=== PATIENT | male | born 1990 | race Two or more races ===

== ENCOUNTER 2020-10-03 11:07 | Inpatient (IN) | payer MEDICAID ==
[~2020-10-03] VITALS: Ht 182.9 cm; Wt 66.2 kg
[2020-10-03] MEDS ORDERED: SODIUM CHLORIDE FLUSH 10ML SYR IVF ONE (11:30)
[2020-10-03] MEDS ORDERED: SODIUM CHLORIDE 0.9% 1,000ML IV ONE (11:30)
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
--- NOTE | 2020-10-03 11:40 | NUR ---
lab at bedside for full set of labs inclusing blood cultures x2
[2020-10-03 12:05] LABS: MEAN CORPUSCULAR HEMOGLOBIN 28.8 pg (27.5-34.5); MEAN CORPUSCULAR HGB CONC 33.2 g/dL (33.2-36.2); PLATELET COUNT 134 x10^3/uL (130-400); RED BLOOD COUNT 4.49 x10^6/uL (4.38-5.82); RED CELL DISTRIBUTION WIDTH 13.4 % (9.4-14.8)
[2020-10-03 12:17] LABS: ALANINE AMINOTRANSFERASE 30 U/L (12-78); ALBUMIN 2.2 g/dL (3.4-5.0); ANION GAP 7 mmol/L (5-15); CALCIUM 8.4 mg/dL (8.5-10.1); CHLORIDE 86 mmol/L (98-107); CREATININE 0.86 mg/dL (0.7-1.3)
[2020-10-03 12:23] LABS: ALKALINE PHOSPHATASE 91 U/L (45-117); BILIRUBIN,TOTAL 2.4 mg/dL (0.2-1.0); TOTAL PROTEIN 6.6 g/dL (6.4-8.2)
[2020-10-03 12:25] LABS: C-REACTIVE PROTEIN, QUANT > 19.00 mg/dL (0.02-0.49)
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
[2020-10-03] MEDS ORDERED: ACETAMINOPHEN 500 MG TABLET ONE (12:42)
[2020-10-03 12:47] LABS: LYMPH#(MANUAL) 0.21 x10^3/uL (1-3.4); LYMPHS% (MANUAL) 1 % (22-44); MONOS% (MANUAL) 7 % (2-9); SEG#(MANUAL) 19.69 x10^3/uL (1.8-6.8); SEGS% (MANUAL) 92 % (42-75)
[2020-10-03 12:48] LABS: <PLATELET ESTIMATE> ADEQUATE; <RBC MORPHOLOGY> NORMAL; LARGE PLATELETS 1+; PMNS WITH VACUOLES 1+
--- NOTE | 2020-10-03 12:49 | NUR ---
abx 1/2, tylenol administered per emar patient then to mri
[2020-10-03] MEDS ORDERED: PIPERACILLIN/TAZO 3.375 GM in DEXTROSE 5% 50 ML IVPB ONE (13:00)
[2020-10-03] MEDS ORDERED: ACETAMINOPHEN 500 MG TABLET PO ONE (13:00)
[2020-10-03] MEDS ORDERED: HYDROmorphone 1 MG/ML, 1ML INJ ONE (13:04)
--- NOTE | 2020-10-03 13:23 | NUR ---
MEDICAL OFFICE COORDINATOR RE-ASSESSED PATIENT IN MRI. REMAIN STABLE. ABX 1/2 COMPLETE, ABX 2/2 STARTED PER EMAR. 1MG IV DIALUDID ADMINISTERED AND UA COLLECTED AND SENT TO LAB
[2020-10-03] MEDS ORDERED: HYDROmorphone 2 MG/ML, 1ML IVPush PRN (13:30)
[2020-10-03] MEDS ORDERED: GADOTERATE 10 MMOL/20ML SYR ONE (13:51)
[2020-10-03] MEDS ORDERED: VANCOMYCIN 2,200 MG in SODIUM CHLORIDE 0.9% 500 ML IV ONE (14:00)
[2020-10-03] MEDS ORDERED: VANCOMYCIN PER PHARMACY MC ONE (14:00)
--- NOTE | 2020-10-03 14:02 | NUR ---
REPORT FROM [facility]. PT IN MRI
--- NOTE | 2020-10-03 14:15 | NUR ---
report to slick pizarro ()patient still in MRI
[2020-10-03 14:29] LABS: MICROSCOPIC INDICATED
[2020-10-03] MEDS ORDERED: ENALAPRILAT 1.25 MG/ML, 2ML IVPush PRN (14:30)
[2020-10-03] MEDS ORDERED: ONDANSETRON 2MG/ML, 2ML IVPush PRN (14:30)
--- NOTE | 2020-10-03 15:19 | NUR ---
PT BACK FROM MRI. PT READY FOR TRANSFER
[2020-10-03 16:10] VITALS: BP 118/74
[2020-10-03 16:31] LABS: MEAN CORPUSCULAR HGB CONC 33.2 g/dL (33.2-36.2); MEAN PLATELET VOLUME 11.6 fL (7.4-10.4); PLATELET COUNT 113 x10^3/uL (130-400); RED BLOOD COUNT 3.97 x10^6/uL (4.38-5.82)
[2020-10-03] MEDS: ENOXAPARIN 40 MG/0.4 ML SQ SCH (16:43)
[2020-10-03] MEDS: LACTATED RINGERS 1,000 ML IV SCH (16:43)
[2020-10-03 17:01] LABS: <PLATELET ESTIMATE> DECREASED; <PLT MORPHOLOGY> NORMAL PLT MORPH; BAND#(MANUAL) 0.19 x10^3/uL; BANDS%(MANUAL) 1 % (0-7); LYMPH#(MANUAL) 0.76 x10^3/uL (1-3.4); LYMPHS% (MANUAL) 4 % (22-44); MONOS#(MANUAL) 0.38 x10^3/uL (0.3-2.7); MONOS% (MANUAL) 2 % (2-9); SEG#(MANUAL) 17.67 x10^3/uL (1.8-6.8); SEGS% (MANUAL) 93 % (42-75)
[2020-10-03 17:02] LABS: <RBC MORPHOLOGY> NORMAL
[2020-10-03 19:12] VITALS: BP 111/70
[2020-10-03] MEDS: HYDROcodone/APAP 5/325 TABLET PO PRN (21:23)
[2020-10-03] MEDS: MELATONIN 5 MG TABLET PO PRN (21:23)
[2020-10-04] VITALS: BP 109/67
[2020-10-04] MEDS ORDERED: PHARMACOKINETIC CONSULTATION MC ONE (00:30)
[2020-10-04] MEDS ORDERED: PHARMACOKINETIC MONITORING MC PRN (00:30)
[2020-10-04] MEDS ORDERED: VANCOMYCIN PER PHARMACY MC PRN (00:30)
[2020-10-04] MEDS: LACTATED RINGERS 1,000 ML IV SCH ×3 (00:39→19:50)
[2020-10-04] MEDS: VANCOMYCIN 1,400 MG in SODIUM CHLORIDE 0.9% 250 ML IV SCH ×3 (00:46→19:50)
[2020-10-04 06:14] LABS: CHLORIDE 93 mmol/L (98-107)
[2020-10-04 06:21] LABS: ALANINE AMINOTRANSFERASE 44 U/L (12-78); ALBUMIN 1.6 g/dL (3.4-5.0); ALKALINE PHOSPHATASE 104 U/L (45-117); ANION GAP 4 mmol/L (5-15); CALCIUM 7.5 mg/dL (8.5-10.1); CREATININE 0.56 mg/dL (0.7-1.3); TOTAL PROTEIN 5.4 g/dL (6.4-8.2)
[2020-10-04 06:41] VITALS: BP 132/72
[2020-10-04] MEDS: HYDROcodone/APAP 5/325 TABLET PO PRN ×3 (06:44→21:13)
[2020-10-04 14:22] VITALS: BP 131/84
[2020-10-04] MEDS: ENOXAPARIN 40 MG/0.4 ML SQ SCH (16:33)
[2020-10-04 19:59] VITALS: BP 130/74
[2020-10-05 00:09] VITALS: BP 119/72
[2020-10-05] MEDS: MELATONIN 5 MG TABLET PO PRN (00:10)
[2020-10-05] MEDS: LACTATED RINGERS 1,000 ML IV SCH ×3 (03:52→23:06)
[2020-10-05] MEDS: VANCOMYCIN 1,400 MG in SODIUM CHLORIDE 0.9% 250 ML IV SCH ×2 (03:53→12:48)
[2020-10-05 07:34] VITALS: BP 121/73
[2020-10-05 12:12] VITALS: BP 128/76
[2020-10-05] MEDS: HYDROcodone/APAP 5/325 TABLET PO PRN ×2 (15:35→21:10)
[2020-10-05] MEDS: ENOXAPARIN 40 MG/0.4 ML SQ SCH (18:07)
[2020-10-05 18:50] VITALS: BP 133/82
[2020-10-05] MEDS ORDERED: VANCOMYCIN 1,500 MG in SODIUM CHLORIDE 0.9% 250 ML IV SCH (21:00)
[2020-10-05 21:07] VITALS: BP 144/88
[2020-10-05 22:06] LABS: HCT (SEDRATE) 33.6 % (39.2-51.8)
[2020-10-05] MEDS: CEFTRIAXONE 2 GM in DEXTROSE 5% 50 ML IVPB SCH (23:36)
[2020-10-06 01:33] VITALS: BP 125/80
[2020-10-06 05:36] LABS: CHLORIDE 101 mmol/L (98-107)
[2020-10-06 05:44] LABS: ALANINE AMINOTRANSFERASE 71 U/L (12-78); ALBUMIN 1.4 g/dL (3.4-5.0); ALKALINE PHOSPHATASE 145 U/L (45-117); BILIRUBIN,TOTAL 1.1 mg/dL (0.2-1.0); CALCIUM 7.7 mg/dL (8.5-10.1); CREATININE 0.43 mg/dL (0.7-1.3); TOTAL PROTEIN 5.7 g/dL (6.4-8.2)
[2020-10-06 06:19] LABS: ANION GAP 4 mmol/L (5-15)
[2020-10-06 06:40] LABS: BASOPHILS % (AUTO) 1 % (0-1); EOSINOPHILS % (AUTO) 0 % (1-7); LYMPHOCYTES % (AUTO) 9 % (22-44); MEAN CORPUSCULAR HEMOGLOBIN 29.1 pg (27.5-34.5); MEAN CORPUSCULAR HGB CONC 33.3 g/dL (33.2-36.2); MEAN PLATELET VOLUME 9.3 fL (7.4-10.4); MONOCYTES % (AUTO) 8 % (2-9); NEUTROPHILS % (AUTO) 82 % (42-75); PLATELET COUNT 250 x10^3/uL (130-400); RED BLOOD COUNT 3.75 x10^6/uL (4.38-5.82); RED CELL DISTRIBUTION WIDTH 13.9 % (9.4-14.8)
[2020-10-06 06:45] VITALS: BP 150/77
[2020-10-06] MEDS: HYDROcodone/APAP 5/325 TABLET PO PRN ×3 (06:46→23:19)
[2020-10-06] MEDS ORDERED: POTASSIUM CHLORIDE 20 MEQ TAB.ER.PRT PO ONE (07:00)
[2020-10-06 08:46] VITALS: BP 141/90
[2020-10-06] MEDS: LACTATED RINGERS 1,000 ML IV SCH ×2 (09:22→16:58)
[2020-10-06 14:49] VITALS: BP 138/88
[2020-10-06] MEDS: ENOXAPARIN 40 MG/0.4 ML SQ SCH (17:00)
[2020-10-06 19:18] VITALS: BP 128/73
[2020-10-06] MEDS: ACETAMINOPHEN 325 MG TABLET PO PRN (21:07)
[2020-10-06] MEDS: MELATONIN 5 MG TABLET PO PRN (21:08)
[2020-10-06 23:18] VITALS: BP 130/75
[2020-10-06] MEDS: CEFTRIAXONE 2 GM in DEXTROSE 5% 50 ML IVPB SCH (23:19)
[2020-10-07 01:15] VITALS: BP 129/76
[2020-10-07] MEDS: LACTATED RINGERS 1,000 ML IV SCH (04:18)
[2020-10-07 05:24] LABS: BASOPHILS % (AUTO) 0 % (0-1); EOSINOPHILS % (AUTO) 1 % (1-7); LYMPHOCYTES % (AUTO) 14 % (22-44); MEAN CORPUSCULAR HEMOGLOBIN 29.3 pg (27.5-34.5); MEAN CORPUSCULAR HGB CONC 33.1 g/dL (33.2-36.2); MEAN PLATELET VOLUME 9.4 fL (7.4-10.4); MONOCYTES % (AUTO) 9 % (2-9); NEUTROPHILS % (AUTO) 76 % (42-75); PLATELET COUNT 313 x10^3/uL (130-400); RED BLOOD COUNT 3.81 x10^6/uL (4.38-5.82); RED CELL DISTRIBUTION WIDTH 13.9 % (9.4-14.8)
[2020-10-07 05:39] LABS: ALANINE AMINOTRANSFERASE 72 U/L (12-78); ALBUMIN 1.4 g/dL (3.4-5.0); ANION GAP 2 mmol/L (5-15); CALCIUM 7.9 mg/dL (8.5-10.1); CHLORIDE 104 mmol/L (98-107)
[2020-10-07 05:42] LABS: ALKALINE PHOSPHATASE 130 U/L (45-117); BILIRUBIN,TOTAL 0.9 mg/dL (0.2-1.0); CREATININE 0.43 mg/dL (0.7-1.3); TOTAL PROTEIN 6.1 g/dL (6.4-8.2)
[2020-10-07 06:21] VITALS: BP 134/85
[2020-10-07] MEDS: HYDROcodone/APAP 5/325 TABLET PO PRN (06:22)
[2020-10-07] MEDS: POLYETHYLENE GLYCOL 17 GM PACKET PO PRN (06:22)
[2020-10-07 09:28] VITALS: BP 120/82
[2020-10-07] MEDS: OXYcodone/APAP 10/325MG TABLET PO PRN ×3 (09:41→23:09)
[2020-10-07] MEDS: CEFAZOLIN 2,000 MG in SODIUM CHLORIDE 0.9% 50 ML IV SCH ×2 (13:06→21:52)
[2020-10-07] MEDS: GABAPENTIN 300 MG CAPSULE PO SCH ×2 (15:22→21:52)
[2020-10-07 15:24] VITALS: BP 146/88
[2020-10-07] MEDS: ENOXAPARIN 40 MG/0.4 ML SQ SCH (16:11)
[2020-10-07 19:37] VITALS: BP 142/76
[2020-10-07] MEDS: ACETAMINOPHEN 325 MG TABLET PO PRN (21:52)
[2020-10-07] MEDS: MELATONIN 5 MG TABLET PO PRN (21:52)
[2020-10-07 23:08] VITALS: BP 137/79
[2020-10-08 01:27] VITALS: BP 131/81
[2020-10-08 05:14] VITALS: BP 134/83
[2020-10-08] MEDS: OXYcodone/APAP 10/325MG TABLET PO PRN (05:15)
[2020-10-08] MEDS: ACETAMINOPHEN 325 MG TABLET PO PRN (05:15)
[2020-10-08] MEDS: POLYETHYLENE GLYCOL 17 GM PACKET PO PRN (05:16)
[2020-10-08] MEDS: CEFAZOLIN 2,000 MG in SODIUM CHLORIDE 0.9% 50 ML IV SCH (06:07)
[2020-10-08] MEDS: GABAPENTIN 300 MG CAPSULE PO SCH (08:00)
[2020-10-08 09:59] VITALS: BP 144/87
[2020-10-08] MEDS ORDERED: KETOROLAC 30 MG/1 ML IVPush PRN (10:00)
[2020-10-08] MEDS: ACETAMINOPHEN 325 MG TABLET PO SCH ×3 (10:06→22:51)
[2020-10-08] MEDS: OXYcodone IR 5MG TABLET PO PRN ×3 (10:06→22:51)
[2020-10-08] MEDS: DAPTOMYCIN 500 MG in SODIUM CHLORIDE 0.9% 100 ML IV SCH (11:57)
[2020-10-08] MEDS: KETOROLAC 30 MG/1 ML IVPush SCH ×2 (13:22→20:10)
[2020-10-08 15:47] VITALS: BP 130/77
[2020-10-08] MEDS: ENOXAPARIN 40 MG/0.4 ML SQ SCH (16:24)
[2020-10-08 19:16] VITALS: BP 136/82
[2020-10-08 22:49] VITALS: BP 230/81
[2020-10-08] MEDS: MELATONIN 5 MG TABLET PO PRN (22:50)
[2020-10-09 00:46] VITALS: BP 131/76
[2020-10-09] MEDS: KETOROLAC 30 MG/1 ML IVPush SCH ×4 (01:59→23:33)
[2020-10-09] MEDS: ACETAMINOPHEN 325 MG TABLET PO SCH ×4 (04:00→20:41)
[2020-10-09 06:28] VITALS: BP 147/80
[2020-10-09] MEDS: OXYcodone IR 5MG TABLET PO PRN ×3 (07:53→20:42)
[2020-10-09] MEDS: DAPTOMYCIN 500 MG in SODIUM CHLORIDE 0.9% 100 ML IV SCH (12:42)
[2020-10-09 14:33] VITALS: BP 125/78
[2020-10-09] MEDS: ENOXAPARIN 40 MG/0.4 ML SQ SCH (16:49)
[2020-10-09] MEDS: POLYETHYLENE GLYCOL 17 GM PACKET PO PRN (16:57)
[2020-10-09 20:03] VITALS: BP 127/83
[2020-10-09 20:40] VITALS: BP 134/80
[2020-10-09] MEDS: MELATONIN 5 MG TABLET PO PRN (20:41)
[2020-10-10 00:13] VITALS: BP 105/66
[2020-10-10] MEDS: ACETAMINOPHEN 325 MG TABLET PO SCH ×4 (02:00→20:04)
[2020-10-10] MEDS: KETOROLAC 30 MG/1 ML IVPush SCH ×4 (05:00→23:27)
[2020-10-10] MEDS: OXYcodone IR 5MG TABLET PO PRN ×3 (05:30→18:12)
[2020-10-10 06:57] VITALS: BP 127/77
[2020-10-10] MEDS: DAPTOMYCIN 500 MG in SODIUM CHLORIDE 0.9% 100 ML IV SCH (11:19)
[2020-10-10 12:30] VITALS: BP 126/72
[2020-10-10] MEDS: ENOXAPARIN 40 MG/0.4 ML SQ SCH (18:11)
[2020-10-10 19:34] VITALS: BP 131/77
[2020-10-11] MEDS: OXYcodone IR 5MG TABLET PO PRN ×5 (00:24→22:08)
[2020-10-11 00:34] VITALS: BP 132/77
[2020-10-11] MEDS: ACETAMINOPHEN 325 MG TABLET PO SCH ×4 (04:17→22:08)
[2020-10-11] MEDS: KETOROLAC 30 MG/1 ML IVPush SCH ×4 (05:43→23:57)
[2020-10-11 05:46] LABS: ALBUMIN 1.5 g/dL (3.4-5.0); ANION GAP 6 mmol/L (5-15); CALCIUM 8.3 mg/dL (8.5-10.1); CHLORIDE 97 mmol/L (98-107)
[2020-10-11 05:51] LABS: ALANINE AMINOTRANSFERASE 219 U/L (12-78); ALKALINE PHOSPHATASE 284 U/L (45-117); CREATININE 0.52 mg/dL (0.7-1.3); TOTAL PROTEIN 7.8 g/dL (6.4-8.2)
[2020-10-11 06:33] LABS: BASOPHILS % (AUTO) 1 % (0-1); EOSINOPHILS % (AUTO) 0 % (1-7); LYMPHOCYTES % (AUTO) 10 % (22-44); MEAN CORPUSCULAR HEMOGLOBIN 29.7 pg (27.5-34.5); MEAN CORPUSCULAR HGB CONC 33.4 g/dL (33.2-36.2); MEAN PLATELET VOLUME 7.9 fL (7.4-10.4); MONOCYTES % (AUTO) 6 % (2-9); NEUTROPHILS % (AUTO) 83 % (42-75); PLATELET COUNT 673 x10^3/uL (130-400); RED BLOOD COUNT 3.41 x10^6/uL (4.38-5.82); RED CELL DISTRIBUTION WIDTH 13.4 % (9.4-14.8)
[2020-10-11 07:10] VITALS: BP 142/87
[2020-10-11] MEDS: DAPTOMYCIN 500 MG in SODIUM CHLORIDE 0.9% 100 ML IV SCH (11:45)
[2020-10-11 12:55] VITALS: BP 123/76
[2020-10-11] MEDS: ENOXAPARIN 40 MG/0.4 ML SQ SCH (17:33)
[2020-10-11 20:19] VITALS: BP 128/79
[2020-10-11] MEDS: SODIUM CHLORIDE 0.9% 1,000 ML IV SCH (20:23)
[2020-10-12 01:18] VITALS: BP 131/73
[2020-10-12] MEDS: OXYcodone IR 5MG TABLET PO PRN ×4 (03:22→20:02)
[2020-10-12] MEDS: ACETAMINOPHEN 325 MG TABLET PO SCH ×4 (04:05→21:52)
[2020-10-12] MEDS: KETOROLAC 30 MG/1 ML IVPush SCH ×4 (06:20→23:44)
[2020-10-12 06:38] VITALS: BP 125/69
[2020-10-12] MEDS: SODIUM CHLORIDE 0.9% 1,000 ML IV SCH (07:38)
[2020-10-12 09:58] LABS: ALANINE AMINOTRANSFERASE 206 U/L (12-78); ALBUMIN 1.5 g/dL (3.4-5.0); ANION GAP 4 mmol/L (5-15); CALCIUM 8.5 mg/dL (8.5-10.1); CHLORIDE 102 mmol/L (98-107); CREATININE 0.44 mg/dL (0.7-1.3)
[2020-10-12 10:00] LABS: ALKALINE PHOSPHATASE 271 U/L (45-117); BILIRUBIN,TOTAL 0.6 mg/dL (0.2-1.0); CREATINE KINASE, TOTAL 14 U/L (39-308); TOTAL PROTEIN 7.7 g/dL (6.4-8.2)
[2020-10-12] MEDS: BACLOFEN 10 MG TABLET PO SCH ×2 (10:05→20:02)
[2020-10-12] MEDS: DAPTOMYCIN 500 MG in SODIUM CHLORIDE 0.9% 100 ML IV SCH (11:32)
[2020-10-12 13:35] VITALS: BP 137/78
[2020-10-12] MEDS: ENOXAPARIN 40 MG/0.4 ML SQ SCH (16:35)
[2020-10-12 19:56] VITALS: BP 145/78
[2020-10-12] MEDS: MELATONIN 5 MG TABLET PO PRN (20:02)
[2020-10-13] VITALS: BP 120/74
[2020-10-13] MEDS: SODIUM CHLORIDE 0.9% 1,000 ML IV SCH (00:05)
[2020-10-13] MEDS: ACETAMINOPHEN 325 MG TABLET PO SCH ×4 (03:59→21:21)
[2020-10-13] MEDS: KETOROLAC 30 MG/1 ML IVPush SCH (05:34)
[2020-10-13 06:39] VITALS: BP 143/81
[2020-10-13] MEDS: BACLOFEN 10 MG TABLET PO SCH ×2 (09:17→21:21)
[2020-10-13] MEDS: OXYcodone IR 5MG TABLET PO PRN ×3 (09:17→21:21)
[2020-10-13] MEDS: DAPTOMYCIN 500 MG in SODIUM CHLORIDE 0.9% 100 ML IV SCH (12:00)
[2020-10-13 12:59] VITALS: BP 135/75
[2020-10-13] MEDS: ENOXAPARIN 40 MG/0.4 ML SQ SCH (18:05)
[2020-10-13 19:52] VITALS: BP 120/72
[2020-10-14 01:09] VITALS: BP 151/79
[2020-10-14] MEDS: OXYcodone IR 5MG TABLET PO PRN ×4 (03:45→22:02)
[2020-10-14] MEDS: ACETAMINOPHEN 325 MG TABLET PO SCH ×4 (03:45→22:01)
[2020-10-14 06:43] LABS: BASOPHILS % (AUTO) 1 % (0-1); EOSINOPHILS % (AUTO) 0 % (1-7); LYMPHOCYTES % (AUTO) 15 % (22-44); MEAN CORPUSCULAR HEMOGLOBIN 29.6 pg (27.5-34.5); MEAN CORPUSCULAR HGB CONC 33.8 g/dL (33.2-36.2); MEAN PLATELET VOLUME 7.4 fL (7.4-10.4); MONOCYTES % (AUTO) 8 % (2-9); NEUTROPHILS % (AUTO) 76 % (42-75); PLATELET COUNT 923 x10^3/uL (130-400); RED BLOOD COUNT 3.16 x10^6/uL (4.38-5.82); RED CELL DISTRIBUTION WIDTH 13.3 % (9.4-14.8)
[2020-10-14 06:51] LABS: ALBUMIN 1.6 g/dL (3.4-5.0); ANION GAP 2 mmol/L (5-15); CALCIUM 8.5 mg/dL (8.5-10.1); CHLORIDE 99 mmol/L (98-107)
[2020-10-14 06:53] VITALS: BP 132/83
[2020-10-14 06:56] LABS: ALANINE AMINOTRANSFERASE 194 U/L (12-78); ALKALINE PHOSPHATASE 299 U/L (45-117); BILIRUBIN,TOTAL 0.6 mg/dL (0.2-1.0); TOTAL PROTEIN 8.5 g/dL (6.4-8.2)
[2020-10-14] MEDS: BACLOFEN 10 MG TABLET PO SCH (09:49)
[2020-10-14] MEDS: DAPTOMYCIN 500 MG in SODIUM CHLORIDE 0.9% 100 ML IV SCH (11:57)
[2020-10-14 13:26] VITALS: BP 124/80
[2020-10-14] MEDS ORDERED: KETOROLAC 15 MG/1ML IVPush SCH (16:30)
[2020-10-14] MEDS: ENOXAPARIN 40 MG/0.4 ML SQ SCH ×2 (17:00→22:02)
[2020-10-14 20:06] VITALS: BP 128/82
[2020-10-14] MEDS: KETOROLAC 30 MG/1 ML IVPush SCH (20:14)
[2020-10-15] MEDS: KETOROLAC 30 MG/1 ML IVPush SCH ×4 (02:16→21:33)
[2020-10-15 03:07] VITALS: BP 113/71
[2020-10-15] MEDS: ACETAMINOPHEN 325 MG TABLET PO SCH ×4 (04:05→22:52)
[2020-10-15] MEDS: OXYcodone IR 5MG TABLET PO PRN ×4 (04:05→22:52)
[2020-10-15 05:53] LABS: ALBUMIN 1.6 g/dL (3.4-5.0); CALCIUM 8.6 mg/dL (8.5-10.1); CHLORIDE 99 mmol/L (98-107)
[2020-10-15 06:21] LABS: ALANINE AMINOTRANSFERASE 265 U/L (12-78); ALKALINE PHOSPHATASE 341 U/L (45-117); ANION GAP 5 mmol/L (5-15); BILIRUBIN,TOTAL 0.4 mg/dL (0.2-1.0); CREATININE 0.48 mg/dL (0.7-1.3); TOTAL PROTEIN 8.2 g/dL (6.4-8.2)
[2020-10-15 08:23] VITALS: BP 123/76
[2020-10-15] MEDS: DAPTOMYCIN 500 MG in SODIUM CHLORIDE 0.9% 100 ML IV SCH (11:30)
[2020-10-15 13:30] VITALS: BP 118/76
[2020-10-15 17:30] LABS: BASOPHILS % (AUTO) 0 % (0-1); EOSINOPHILS % (AUTO) 0 % (1-7); LYMPHOCYTES % (AUTO) 18 % (22-44); MEAN CORPUSCULAR HEMOGLOBIN 29.4 pg (27.5-34.5); MEAN CORPUSCULAR HGB CONC 33.5 g/dL (33.2-36.2); MEAN PLATELET VOLUME 7.2 fL (7.4-10.4); MONOCYTES % (AUTO) 4 % (2-9); NEUTROPHILS % (AUTO) 77 % (42-75); PLATELET COUNT 877 x10^3/uL (130-400); RED BLOOD COUNT 3.23 x10^6/uL (4.38-5.82); RED CELL DISTRIBUTION WIDTH 13.5 % (9.4-14.8)
[2020-10-15 20:30] VITALS: BP 110/69
[2020-10-16 00:40] VITALS: BP 127/78
[2020-10-16] MEDS: KETOROLAC 30 MG/1 ML IVPush SCH ×4 (03:33→22:12)
[2020-10-16] MEDS: OXYcodone IR 5MG TABLET PO PRN ×3 (04:53→17:13)
[2020-10-16] MEDS: ACETAMINOPHEN 325 MG TABLET PO SCH ×3 (04:53→17:13)
[2020-10-16 05:29] LABS: HCT (SEDRATE) 27.1 % (39.2-51.8)
[2020-10-16 05:36] LABS: ALANINE AMINOTRANSFERASE 210 U/L (12-78); ALBUMIN 1.7 g/dL (3.4-5.0); CALCIUM 8.8 mg/dL (8.5-10.1); GAMMA GLUTAMYL TRANSPEPTIDASE 183 U/L (15-85)
[2020-10-16 05:43] LABS: BASOPHILS % (AUTO) 1 % (0-1); EOSINOPHILS % (AUTO) 0 % (1-7); LYMPHOCYTES % (AUTO) 15 % (22-44); MEAN CORPUSCULAR HEMOGLOBIN 28.7 pg (27.5-34.5); MEAN CORPUSCULAR HGB CONC 32.9 g/dL (33.2-36.2); MEAN PLATELET VOLUME 7.3 fL (7.4-10.4); MONOCYTES % (AUTO) 7 % (2-9); NEUTROPHILS % (AUTO) 78 % (42-75); PLATELET COUNT 896 x10^3/uL (130-400); RED BLOOD COUNT 3.06 x10^6/uL (4.38-5.82); RED CELL DISTRIBUTION WIDTH 13.3 % (9.4-14.8)
[2020-10-16 05:46] LABS: ALKALINE PHOSPHATASE 315 U/L (45-117); BILIRUBIN,TOTAL 0.5 mg/dL (0.2-1.0); CREATINE KINASE, TOTAL 15 U/L (39-308); CREATININE 0.48 mg/dL (0.7-1.3); TOTAL PROTEIN 8.2 g/dL (6.4-8.2)
[2020-10-16 05:50] LABS: ANION GAP 4 mmol/L (5-15); CHLORIDE 99 mmol/L (98-107)
[2020-10-16 07:32] VITALS: BP 112/71
[2020-10-16] MEDS: LORazepam 0.5MG TABLET PO PRN ×2 (10:02→22:12)
[2020-10-16] MEDS: DAPTOMYCIN 500 MG in SODIUM CHLORIDE 0.9% 100 ML IV SCH (11:46)
[2020-10-16 13:29] VITALS: BP 118/79
[2020-10-16] MEDS: ENOXAPARIN 40 MG/0.4 ML SQ SCH (17:13)
[2020-10-16 19:44] VITALS: BP 115/71
[2020-10-17 01:58] VITALS: BP 124/75
[2020-10-17] MEDS: OXYcodone IR 5MG TABLET PO PRN ×4 (02:14→22:19)
[2020-10-17] MEDS: KETOROLAC 30 MG/1 ML IVPush SCH ×4 (04:18→22:19)
[2020-10-17 05:42] LABS: BASOPHILS % (AUTO) 1 % (0-1); EOSINOPHILS % (AUTO) 0 % (1-7); LYMPHOCYTES % (AUTO) 20 % (22-44); MEAN CORPUSCULAR HEMOGLOBIN 28.9 pg (27.5-34.5); MEAN CORPUSCULAR HGB CONC 33.1 g/dL (33.2-36.2); MONOCYTES % (AUTO) 7 % (2-9); NEUTROPHILS % (AUTO) 73 % (42-75); PLATELET COUNT 858 x10^3/uL (130-400); RED BLOOD COUNT 3.03 x10^6/uL (4.38-5.82); RED CELL DISTRIBUTION WIDTH 13.3 % (9.4-14.8)
[2020-10-17 06:02] LABS: CHLORIDE 99 mmol/L (98-107)
[2020-10-17 06:07] LABS: ALANINE AMINOTRANSFERASE 278 U/L (12-78); ALBUMIN 1.7 g/dL (3.4-5.0); ALKALINE PHOSPHATASE 335 U/L (45-117); ANION GAP 4 mmol/L (5-15); BILIRUBIN,TOTAL 0.5 mg/dL (0.2-1.0); CALCIUM 8.8 mg/dL (8.5-10.1); CREATININE 0.47 mg/dL (0.7-1.3); TOTAL PROTEIN 8.4 g/dL (6.4-8.2)
[2020-10-17 06:57] VITALS: BP 114/72
[2020-10-17] MEDS: DAPTOMYCIN 500 MG in SODIUM CHLORIDE 0.9% 100 ML IV SCH (11:36)
[2020-10-17 13:48] VITALS: BP 111/69
[2020-10-17] MEDS: ENOXAPARIN 40 MG/0.4 ML SQ SCH (16:15)
[2020-10-17 19:18] VITALS: BP 122/75
[2020-10-18 02:02] VITALS: BP 118/73
[2020-10-18] MEDS: OXYcodone IR 5MG TABLET PO PRN (04:23)
[2020-10-18] MEDS: KETOROLAC 30 MG/1 ML IVPush SCH ×4 (04:23→21:46)
[2020-10-18 06:03] LABS: ALBUMIN 1.7 g/dL (3.4-5.0); ANION GAP 5 mmol/L (5-15); CALCIUM 8.8 mg/dL (8.5-10.1); CHLORIDE 100 mmol/L (98-107)
[2020-10-18 06:04] LABS: BASOPHILS % (AUTO) 1 % (0-1); EOSINOPHILS % (AUTO) 0 % (1-7); LYMPHOCYTES % (AUTO) 22 % (22-44); MEAN CORPUSCULAR HEMOGLOBIN 29.6 pg (27.5-34.5); MEAN PLATELET VOLUME 7.3 fL (7.4-10.4); MONOCYTES % (AUTO) 9 % (2-9); NEUTROPHILS % (AUTO) 67 % (42-75); PLATELET COUNT 829 x10^3/uL (130-400); RED BLOOD COUNT 2.88 x10^6/uL (4.38-5.82); RED CELL DISTRIBUTION WIDTH 13.5 % (9.4-14.8)
[2020-10-18 06:07] LABS: ALANINE AMINOTRANSFERASE 342 U/L (12-78); ALKALINE PHOSPHATASE 346 U/L (45-117); BILIRUBIN,TOTAL 0.5 mg/dL (0.2-1.0); TOTAL PROTEIN 8.2 g/dL (6.4-8.2)
[2020-10-18 06:24] VITALS: BP 125/75
[2020-10-18] MEDS ORDERED: ACETAMINOPHEN 500 MG TABLET PO PRN (09:30)
[2020-10-18] MEDS: OXYcodone IR 5MG TABLET PO SCH ×3 (10:01→21:46)
[2020-10-18] MEDS: DAPTOMYCIN 500 MG in SODIUM CHLORIDE 0.9% 100 ML IV SCH (11:54)
[2020-10-18 13:58] VITALS: BP 118/68
[2020-10-18] MEDS: ENOXAPARIN 40 MG/0.4 ML SQ SCH (17:00)
[2020-10-18] MEDS ORDERED: LIDODERM REMOVE PATCH NOTE XX SCH (18:59)
[2020-10-18 19:48] VITALS: BP 111/72
[2020-10-18] MEDS: LIDODERM 5% PATCH TD SCH (21:46)
[2020-10-19 01:14] VITALS: BP 108/70
[2020-10-19] MEDS: OXYcodone IR 5MG TABLET PO SCH ×4 (04:02→21:39)
[2020-10-19] MEDS: KETOROLAC 30 MG/1 ML IVPush SCH ×5 (04:02→19:28)
[2020-10-19 05:29] LABS: ALBUMIN 1.8 g/dL (3.4-5.0); ANION GAP 5 mmol/L (5-15); CALCIUM 8.7 mg/dL (8.5-10.1); CHLORIDE 98 mmol/L (98-107)
[2020-10-19 05:34] LABS: ALANINE AMINOTRANSFERASE 333 U/L (12-78); ALKALINE PHOSPHATASE 342 U/L (45-117); BILIRUBIN,TOTAL 0.5 mg/dL (0.2-1.0); CREATININE 0.53 mg/dL (0.7-1.3); TOTAL PROTEIN 8.5 g/dL (6.4-8.2)
[2020-10-19] MEDS: LIDODERM REMOVE PATCH NOTE XX SCH (08:40)
[2020-10-19 08:45] VITALS: BP 125/82
[2020-10-19] MEDS: DAPTOMYCIN 500 MG in SODIUM CHLORIDE 0.9% 100 ML IV SCH (11:40)
[2020-10-19 15:10] VITALS: BP 115/78
[2020-10-19] MEDS: ENOXAPARIN 40 MG/0.4 ML SQ SCH (16:51)
[2020-10-19] MEDS ORDERED: KETOROLAC 30 MG/1 ML IVPush SCH (18:00)
[2020-10-19 19:34] VITALS: BP 119/73
[2020-10-19] MEDS: LIDODERM 5% PATCH TD SCH (21:40)
[2020-10-20 01:40] VITALS: BP 109/63
[2020-10-20] MEDS: KETOROLAC 30 MG/1 ML IVPush SCH ×2 (01:40→07:59)
[2020-10-20] MEDS: OXYcodone IR 5MG TABLET PO SCH ×2 (03:53→09:40)
[2020-10-20 05:43] LABS: BASOPHILS % (AUTO) 1 % (0-1); EOSINOPHILS % (AUTO) 0 % (1-7); LYMPHOCYTES % (AUTO) 24 % (22-44); MEAN CORPUSCULAR HEMOGLOBIN 29.3 pg (27.5-34.5); MEAN CORPUSCULAR HGB CONC 33.8 g/dL (33.2-36.2); MEAN PLATELET VOLUME 7.1 fL (7.4-10.4); MONOCYTES % (AUTO) 11 % (2-9); NEUTROPHILS % (AUTO) 64 % (42-75); PLATELET COUNT 810 x10^3/uL (130-400); RED BLOOD COUNT 3.16 x10^6/uL (4.38-5.82); RED CELL DISTRIBUTION WIDTH 13.1 % (9.4-14.8)
[2020-10-20 05:45] LABS: HCT (SEDRATE) 27.4 % (39.2-51.8)
[2020-10-20 05:56] LABS: ALBUMIN 1.8 g/dL (3.4-5.0); CALCIUM 8.8 mg/dL (8.5-10.1); CHLORIDE 98 mmol/L (98-107)
[2020-10-20 06:06] LABS: ALANINE AMINOTRANSFERASE 620 U/L (12-78); ALKALINE PHOSPHATASE 429 U/L (45-117); ANION GAP 4 mmol/L (5-15); BILIRUBIN,TOTAL 0.5 mg/dL (0.2-1.0); CREATININE 0.56 mg/dL (0.7-1.3); TOTAL PROTEIN 8.7 g/dL (6.4-8.2)
[2020-10-20 06:41] VITALS: BP 108/73
[2020-10-20] MEDS: LIDODERM REMOVE PATCH NOTE XX SCH (09:30)
[2020-10-20] MEDS ORDERED: HYDR50TA99 PO ×3 (10:27→10:44)
[2020-10-20] MEDS ORDERED: OXYC-380 PO ×5 (10:27→12:01)
[2020-10-20] MEDS ORDERED: BACL5TAB PO ×3 (10:27→10:44)
[2020-10-20] MEDS ORDERED: LIDO700A20 TD ×3 (10:27→10:44)
== END 2020-10-20 11:12 | disposition home or self-care (01) | DRG 872 ==
LOC: SUATTDRO 13:41 → ED 13:42 → EDIP 13:43 → ED 14:34 → 4EST 15:41 → 3N 10-12 12:06
PROVIDERS: ADMIT Hospitalist; ATTEND Hospitalist
DX: A40.9 Streptococcal sepsis, unspecified (principal); E44.0 Moderate protein-calorie malnutrition; E87.1 Hypo-osmolality and hyponatremia; S21.111A Laceration without foreign body of right front wall of thorax without penetration into thoracic cavity, initial encounter; Z68.1 Body mass index [BMI] 19.9 or less, adult; B95.8 Unspecified staphylococcus as the cause of diseases classified elsewhere; D64.9 Anemia, unspecified; F17.200 Nicotine dependence, unspecified, uncomplicated; F91.9 Conduct disorder, unspecified; S61.019A Laceration without foreign body of unspecified thumb without damage to nail, initial encounter; R74.01 Elevation of levels of liver transaminase levels; G89.29 Other chronic pain; M51.9 Unspecified thoracic, thoracolumbar and lumbosacral intervertebral disc disorder; R65.20 Severe sepsis without septic shock; Z59.0 Homelessness; Y93.55 Activity, bike riding; V28.4XXA Motorcycle driver injured in noncollision transport accident in traffic accident, initial encounter; Y92.89 Other specified places as the place of occurrence of the external cause; Y99.8 Other external cause status; Z79.899 Other long term (current) drug therapy
CPT/HCPCS: 36415; 71045; 72157; 72158; 76705; 80053; 80202; 81001; 82550; 82607; 82977; 83605; 83735; 84100; 85025; 85651; 86140; 86480; 86705; 86706; 86803; 87040; 87070; 87077; 87086; 87147; 87181; 87186; 87205; 87340; 87806; 93306; 93970; G0378; J0690; J0696; J0878; J1170; J1650; J1885; J2543; J3370; A9575; G0475; J7030; J7040; J7050; J7120

== ENCOUNTER 2020-10-25 08:02 | Outpatient (CLI) | payer MEDICAID ==
[~2020-10-25 08:02] MED LIST: BACL5TAB PO; HYDR50TA99 PO; LIDO700A20 TD; OXYC-380 PO
== END 2020-10-25 23:59 | disposition home or self-care (01) ==
LOC: WOUND 08:02
PROVIDERS: ATTEND Internal Medicine
DX: S21.111A Laceration without foreign body of right front wall of thorax without penetration into thoracic cavity, initial encounter (principal); S21.232A Puncture wound without foreign body of left back wall of thorax without penetration into thoracic cavity, initial encounter; L03.313 Cellulitis of chest wall; G89.29 Other chronic pain; F11.90 Opioid use, unspecified, uncomplicated; F15.90 Other stimulant use, unspecified, uncomplicated; F17.210 Nicotine dependence, cigarettes, uncomplicated; E44.0 Moderate protein-calorie malnutrition; Z68.22 Body mass index [BMI] 22.0-22.9, adult; Z79.899 Other long term (current) drug therapy; V28.4XXA Motorcycle driver injured in noncollision transport accident in traffic accident, initial encounter; Y93.89 Activity, other specified; Y92.89 Other specified places as the place of occurrence of the external cause; Y99.8 Other external cause status
CPT/HCPCS: 97597

== ENCOUNTER 2020-10-27 15:59 | Emergency (ER) | payer MEDICAID ==
[~2020-10-27] VITALS: Ht 175.3 cm; Wt 75.0 kg
[2020-10-27 16:00] VITALS: BP 115/71
== END 2020-10-27 17:52 | disposition home or self-care (01) ==
LOC: ED 17:00
DX: S21.131A Puncture wound without foreign body of right front wall of thorax without penetration into thoracic cavity, initial encounter (principal); X58.XXXA Exposure to other specified factors, initial encounter; Y93.89 Activity, other specified; Y92.89 Other specified places as the place of occurrence of the external cause; Y99.8 Other external cause status
CPT/HCPCS: 71046; 99283